=== PATIENT | female | born 1975 | race Caucasian/White ===

== ENCOUNTER 2016-05-16 15:54 | Emergency (ER) | payer BC ==
[2016-05-16 16:36] VITALS: BP 109/84; PULSE 78; RESP 16; TEMP 98.4; O2SAT 98
--- NOTE | 2016-05-16 17:33 | UCPHY ---
H & P Patient Type: New HPI/ROS: CHIEF COMPLAINT: Right ankle pain and swelling. HISTORY OF PRESENT ILLNESS: The patient is a 40-year-old female who presents after rolling her right ankle a few hours ago while hiking. She experienced immediate pain and lateral swelling. The pain is worsened with movement and she is having difficulty walking, Though is able to walk as she had to get out of [place].. She did not hear a pop or crack. She has a history of tendon injuries to her right ankle 5 years ago. REVIEW OF SYSTEMS: Constitutional: No fever, no chills. Musculoskeletal: As above. Skin: No rashes. Neurological: No paresthesias Past Medical/Surgical History: Denies. Social History: Nonsmoker, , mother, moved from [facility] 1 year ago. Smoking Status: Never smoked Physical Exam: General Appearance: Alert, no distress. Afebrile. Extremities: There is mild soft tissue swelling present over the lateral malleolus. There is particular tenderness at that site as well over the lateral malleolus. The drawer sign is negative. No signs laxity. Compression testing negative. Neurological: NV intact. Skin: Skin is intact. Warm and dry, no rashes. no lymphangitis. . Constitutional: Initial Vital Signs Temperature (C) 36.9 C 05/16/16 16:32 Heart Rate 78 05/16/16 16:32 Respiratory Rate 16 05/16/16 16:32 Blood Pressure 109/84 H 05/16/16 16:32 O2 Sat (%) 98 05/16/16 16:32 O2 Delivery Mode Room Air Allergies/Adverse Reactions: No Known Allergies Allergy (Verified 05/16/16 16:36) Home Medications: Medication Instructions Recorded Hyqwwthleo-VDX-Lbavectm Cap 05/16/16 Flonase Nasal [place] 05/16/16 Phenergan 05/16/16 Zofran 05/16/16 Medical Decision Making - Diagnostics Imaging: Study: Right ankle X-ray Indication: Trauma, pain Results: I viewed the images myself on the PACS system. My interpretation of the images is: no fracture. The radiologist interpretation is pending at the time of this dictation. ED Course/Re-evaluation: Right ankle x-ray ordered. Once x-rays were negative she was fitted for a ankle stirrup brace. Differential Diagnosis: The differential diagnosis includes but is not limited to: Fracture, Sprain, Strain, Dislocation, Nerve injury Departure - Departure Disposition: Home, Routine, Self-Care Clinical Impression: Right ankle sprain Qualifiers: Encounter type: initial encounter Involved ligament of ankle: calcaneofibular ligament Qualified Code(s): S93.411A - Sprain of calcaneofibular ligament of right ankle, initial encounter Condition: Good Instructions: Ankle Sprain (ED) Additional Instructions: Take 600mg Ibuprofen every 6-8 hours as needed for pain. Ice affected joint for pain. Call Dr. Abdul, orthopedics, in the next 5-7 days if symptoms are not improving. Return for any serious worsening of condition. Referrals: Ayad Abdul MD [Medical Doctor] - As per Instructions - PQRS PQRS Measurement: Not applicable. Report Scribed for: Jorge Luis Johnson Report Scribed by: Todd Villaseñor Date of Report: 05/16/16 Time of Report: 17:32 Physician Review and Approval Statement: 05/16/16 17:33 Portions of this note were transcribed by a medical field representative. I personally performed a history, physical exam, medical decision making, and confirmed accuracy of information the transcribed note.
== END 2016-05-16 18:04 | disposition home or self-care (01) ==
LOC: CED 15:54
DX: S93.411A Sprain of calcaneofibular ligament of right ankle, initial encounter (principal); X50.0XXA Overexertion from strenuous movement or load, initial encounter; Y93.01 Activity, walking, marching and hiking; Y92.828 Other wilderness area as the place of occurrence of the external cause; Y99.8 Other external cause status
CPT/HCPCS: 73610-PO; G0463-PO; L4350

== ENCOUNTER → 2016-09-23 | Outpatient (CLI) | payer BC | LOC: BMCIMAGING 11:07 | PROVIDERS: ATTEND Podiatrist Foot & Ankle Surgery | DX: M79.671 Pain in right foot (principal) ==

== ENCOUNTER → 2018-08-31 | Outpatient (CLI) | payer BC | LOC: BMCIMAGING 15:12 ==